=== PATIENT | female | born 1970 | race Caucasian/White ===

== ENCOUNTER 2017-08-21 13:43 | Emergency (ER) | payer OTHER ==
[~2017-08-21] VITALS: Ht 165.1 cm; Wt 79.4 kg
== END 2017-08-21 15:28 | disposition home or self-care (01) ==
LOC: ER 13:43
DX: S81.012A Laceration without foreign body, left knee, initial encounter (principal); W18.09XA Striking against other object with subsequent fall, initial encounter; Y93.89 Activity, other specified; Y92.89 Other specified places as the place of occurrence of the external cause; Y99.8 Other external cause status

== ENCOUNTER 2017-08-29 10:22 | Emergency (ER) | payer OTHER ==
[~2017-08-29] VITALS: Ht 165.1 cm; Wt 79.4 kg
== END 2017-08-29 11:26 | disposition home or self-care (01) ==
LOC: ER 10:22
DX: Z48.02 Encounter for removal of sutures (principal)

== ENCOUNTER 2017-09-01 12:01 | Emergency (ER) | payer OTHER ==
[~2017-09-01] VITALS: Ht 165.1 cm; Wt 79.4 kg
[2017-09-01] MEDS ORDERED: LEVAQUIN750 MG PO (15:22)
== END 2017-09-01 17:42 | disposition home or self-care (01) ==
LOC: ER 12:01
DX: Z48.02 Encounter for removal of sutures (principal)